=== PATIENT | female | born 1950 | race African-American/Black ===

== ENCOUNTER 2016-09-25 13:21 | Emergency (ER) | payer MEDICARE, OTHER ==
[~2016-09-25] VITALS: Ht 160 cm; Wt 113.4 kg
[2016-09-25 13:25] VITALS: BP 138/77
--- NOTE | 2016-09-25 14:11 | RAD ---
Indication pain. AP oblique and lateral views of the right ankle were obtained. No bony abnormality is seen
[2016-09-25] MEDS ORDERED: METH4TAB2 PO (14:39)
[2016-09-25] MEDS ORDERED: DICL100G7 TP (14:39)
--- NOTE | 2016-09-25 14:41 | PHYS DOC ---
Past Medical History Past Medical History: High Cholesterol, Hypertension Additional Past Medical Histor: RUPUTURED COLON Past Surgical History: Other Additional Past Surgical Histo: COLOSTOMY, IEOLSTOMY Alcohol Use: None Drug Use: None Adult General Chief Complaint Chief Complaint: ANKLE PROBLEM HPI HPI Patient is a 66 year old female with a history of hypertension high cholesterol who presents today with right ankle pain that began 2 weeks ago after walking a lot in [place]. Patient denies any trauma. She states the pain is worse when she is ambulating. Review of Systems Review of Systems Constitutional: Denies fever or chills [] Eyes: Denies change in visual acuity, redness, or eye pain [] Musculoskeletal: Right ankle pain] Integument: Denies rash or skin lesions [] Neurologic: Denies headache, focal weakness or sensory changes [] Endocrine: Denies polyuria or polydipsia [] Allergies Allergies Allergies Coded Allergies Type Severity Reaction Last Updated Verified aspirin Allergy Severe Hives 12/09/14 No codeine Allergy Severe Hives 12/09/14 No oxycodone Allergy Severe Hives 12/09/14 No Physical Exam Physical Exam Constitutional: Well developed, well nourished, no acute distress, non-toxic appearance. [] HENT: Normocephalic, atraumatic, bilateral external ears normal, oropharynx moist, no oral exudates, nose normal. [] Skin: Warm, dry, no erythema, no rash. [] Back: No tenderness, no CVA tenderness. [] Extremities: Right ankle with no obvious deformity. Tenderness diffusely throughout the ankle. Full range of motion to the right ankle. Patient able to flex and extend the right foot with no difficulty. +2 right pedal pulse. Cap refill less than 2 seconds the right lower extremity. Sensation intact to the right lower extremity. Neurologic: Alert and oriented X 3, normal motor function, normal sensory function, no focal deficits noted. [] Psychologic: Affect normal, judgement normal, mood normal. [] Current Patient Data Vital Signs Vital Signs Date Time Temp Pulse Resp B/P (MAP) Pulse Ox O2 Delivery O2 Flow Rate FiO2 09/25/16 13:25 98.1 88 16 96 Room Air 98.1 EKG EKG [] Radiology/Procedures Radiology/Procedures []PROCEDURE: ANKLE RIGHT 3V Indication pain. AP oblique and lateral views of the right ankle were obtained. No bony abnormality is seen DICTATED and SIGNED BY: QUIQUE THORPE MD DATE: 09/25/16 0262 CC: JULIANNE PERALES MD; WINNIE ROSA APRN ~ Course & Med Decision Making Course & Med Decision Making Pertinent Labs and Imaging studies reviewed. (See chart for details) Patient is in the ED with right ankle pain after walking a lot in [place] 2 weeks ago. Right ankle x-rays interpreted by radiologist are negative for any acute findings. Patient probably has right ankle overuse syndrome. Gamaliel wrap applied to the right ankle by the ED RN, neurovascular exam done by me is normal , cap refill less than 2 seconds. Ice elevation encouraged. Discharged with Voltaren cream and Medrol Dosepak as needed. Dragon Disclaimer Dragon Disclaimer This electronic medical record was generated, in whole or in part, using a voice recognition dictation system. Departure Departure Impression: Primary Impression: Overuse syndrome Disposition: 01 HOME, SELF-CARE Condition: STABLE Referrals: JULIANNE PERALES MD (PCP) REBECA HAINES MD Follow-up in one week Patient Instructions: Musculoskeletal Pain Additional Instructions: You were seen for right ankle pain. We highly suspect you have overuse syndrome. Try and rest of the ankle, ice and elevate it. Wear the Gamaliel wrap as needed and tolerated. Use the prescribed medicines as ordered. Scripts Methylprednisolone (MEDROL) 4 Mg Tab.ds.pk 1 PKG PO UD, #1 PKG Prov: WINNIE ROSA APRN 09/25/16 Diclofenac Sodium (VOLTAREN) 100 Gm Gel..gram. 1 GM TP QID, #100 GM 2 Refills Prov: WINNIE ROSA APRN 09/25/16 WINNIE ROSA APRN September 25, 2016 14:41
== END 2016-09-25 14:48 | disposition home or self-care (01) ==
LOC: ER 13:21
DX: M70.971 Unspecified soft tissue disorder related to use, overuse and pressure, right ankle and foot (principal); E78.00 Pure hypercholesterolemia, unspecified; I10 Essential (primary) hypertension; Z88.5 Allergy status to narcotic agent; Z88.6 Allergy status to analgesic agent; Y93.89 Activity, other specified
CPT/HCPCS: 73610; 99284

== ENCOUNTER → 2016-10-22 | Outpatient (CLI) | payer MEDICARE ==
[2016-09-25 13:25] VITALS: BP 138/77
[~2016-10-22] MED LIST: DICL100G7 TP; METH4TAB2 PO
--- NOTE | 2016-10-22 14:20 | RAD ---
Exam: PA and lateral chest radiograph History: Deep cough for 3 to 4 weeks. Comparison: 12/09/2014. Findings: Cardiomediastinal silhouette is within normal limits for size. Bilateral lung feliz are free of focal infiltrate. No pleural effusion is seen. Impression: No acute cardiopulmonary process.
== END | disposition home or self-care (01) ==
LOC: RAD 10:31
PROVIDERS: ATTEND Family Medicine
DX: R05 Cough (principal)
CPT/HCPCS: 71020

== ENCOUNTER → 2019-03-22 | Outpatient (CLI) | payer MEDICARE ==
[~2019-03-22] MED LIST changes: +DICL100G18 TP; -DICL100G7 TP
--- NOTE | 2019-03-22 16:33 | KCIC ---
LUMBAR SPINE MIN 4V History: Low back pain. Left sciatica Technique: 5 views lumbar spine. Comparison: None. Findings: Grade 1 anterolisthesis L4 on L5. Normal vertebral body height. No fracture. Multilevel degenerative disc changes most prominent L4-5 and L5-S1. Advanced lower lumbar facet arthropathy. Postop changes upper abdomen. Bilateral hip DJD partially imaged. Impression: 1. Grade 1 anterolisthesis L4 on L5. 2. Multilevel lumbar spondylosis most prominent L4-L5 and L5-S1. Electronically signed by: Perry Dobbs DO (03/22/2019 4:30 PM) [facility]
== END | disposition home or self-care (01) ==
LOC: KCIC 10:57
PROVIDERS: ATTEND Family Medicine
DX: M43.16 Spondylolisthesis, lumbar region (principal); M47.817 Spondylosis without myelopathy or radiculopathy, lumbosacral region; M16.0 Bilateral primary osteoarthritis of hip
CPT/HCPCS: 72110

== ENCOUNTER → 2019-11-06 | Outpatient (CLI) | payer MEDICARE ==
[~2019-11-06] MED LIST changes: -DICL100G18 TP; +DICL100G54 TP; +IOHEXOL 240 MG/ML 50ML VIAL. PO ONE; +IOHEXOL 300 MG/ML 100ML VIAL. IV ONE
[2019-11-06 09:19] LABS: CREATININE 0.9 mg/dL (0.6-1.0); GFR 74.9
--- NOTE | 2019-11-06 11:04 | RAD ---
EXAM: CT Abdomen and Pelvis with IV contrast INDICATION: Reason: LUQ ABD PAIN HX OF GASTRIC BYPASS / Spl. Instructions: IV OMNI 300 75 MLS AND PO OMNI 240 50 MLS / History: TECHNIQUE: Multi-detector row CT images were acquired from the lung bases through the abdomen and pelvis with the use of IV contrast. Sagittal and coronal images were acquired from the transaxial data. All CT scans performed at this facility utilize dose optimization techniques as appropriate to the exam, including the following: Automated exposure control and adjustment of the mA and/or KV according to patient size (this includes techniques or standardized protocols for targeted exams where dose is indication/reason for exam). IV CONTRAST: Administered ORAL CONTRAST: Administered COMPARISON: Noncontrast abdomen pelvis CT of 01/14/2015 FINDINGS: LOWER CHEST: Unremarkable LIVER: Multiple hepatic cysts are again evident. The largest in hepatic segment 2 has markedly increased in size, now measuring 6.7 x 4.7 x 5.4 cm compared with 4.3 x 3.0 x 3.0 cm previously. BILIARY SYSTEM: Gallbladder is moderately distended. No radiopaque stones. No pericholecystic soft tissue stranding. Bile ducts are not dilated. PANCREAS: Unremarkable SPLEEN: Unremarkable ADRENALS: Unremarkable KIDNEYS & URETERS: Unremarkable BLADDER: Unremarkable REPRODUCTIVE ORGANS: Hysterectomy. GASTROINTESTINAL: Surgical changes from previous gastric bypass are evident with no findings of bowel obstruction, perforation or acute inflammation. In the interval, there are loops of small bowel that are interposed against the left diaphragm, cephalad to the now enlarged dominant left hepatic cyst. The mesenteric vessels of the small bowel loops appear stretched. The large bowel at the hepatic flexure shows apparent wall thickening that could be an artifact of under distention. This is best illustrated on axial image 37 of series 2. The appendix is normal. MESENTERY/PERITONEUM/RETROPERITONEUM: Unremarkable VASCULAR: Unremarkable LYMPH NODES: No adenopathy OSSEOUS & SOFT TISSUES: Surgical changes from ventral hernia mesh repair are present. IMPRESSION: Status post previous gastric bypass with interposition of small bowel bowel loops against the left diaphragm in the left upper quadrant with stretched mesenteric vessels, possibly exacerbated by interval enlargement of a dominant left hepatic cyst. Can't exclude a symptomatic transomental internal hernia. Electronically signed by: Jerica Urbina MD (11/06/2019 11:01 AM) [id number]
== END | disposition home or self-care (01) ==
LOC: CT 08:12
PROVIDERS: ATTEND Nurse Practitioner
DX: R14.3 Flatulence (principal); R14.0 Abdominal distension (gaseous); Z98.84 Bariatric surgery status
CPT/HCPCS: 36415; 74177; 82565; 84520; Q9966; Q9967

== ENCOUNTER → 2021-10-01 | Outpatient (CLI) | payer MEDICARE ==
[~2021-10-01] MED LIST changes: -IOHEXOL 240 MG/ML 50ML VIAL. PO ONE; -IOHEXOL 300 MG/ML 100ML VIAL. IV ONE
--- NOTE | 2021-10-01 08:30 | KCIC ---
EXAM: Right lower extremity venous Doppler sonogram. HISTORY: Pain and swelling. TECHNIQUE: Wilder scale and color Doppler sonographic evaluation of the right lower extremity veins wit h spectral waveform analysis was performed. FINDINGS: There is normal color flow, normal compressibility and there are normal spectral waveforms in the common femoral, superficial femoral, popliteal, posterior tibial and greater saphenous veins. IMPRESSION: No Doppler evidence of lower extremity deep venous thrombosis. Electronically signed by: Joselin Kelly MD (10/01/2021 8:28 AM) [id number]
== END ==
LOC: KCIC US 07:52
PROVIDERS: ATTEND Family Medicine
DX: R60.0 Localized edema (principal)
CPT/HCPCS: 93971